=== PATIENT | female | born 1950 | race Caucasian/White ===

== ENCOUNTER 2017-12-22 19:24 | Outpatient (CLI) | payer SELFPAY | END 2017-12-22 19:25 | disposition EMS.NT | LOC: EMS 19:24 | PROVIDERS: ATTEND Surgery | DX: R53.1 Weakness (principal); W18.30XA Fall on same level, unspecified, initial encounter; Z91.81 History of falling; Y92.009 Unspecified place in unspecified non-institutional (private) residence as the place of occurrence of the external cause ==

== ENCOUNTER 2018-08-09 06:00 | Outpatient (CLI) | payer SELFPAY | END 2018-08-09 06:01 | disposition EMS.NT | LOC: EMS 06:00 | PROVIDERS: ATTEND Surgery | DX: Z03.89 Encounter for observation for other suspected diseases and conditions ruled out (principal) ==

== ENCOUNTER 2018-10-26 16:34 | Outpatient (CLI) | payer MEDICARE, OTHER ==
[2018-10-26 17:36] LABS: BASOPHILS # (AUTO) 0.1 10^3/uL (0.0-0.1); BASOPHILS % (AUTO) 0.4 %; EOSINOPHILS % (AUTO) 0.2 %; HGB - HEMOGLOBIN 14.1 g/dL (12.0-16.0); LYMPHOCYTES # (AUTO) 3.4 10^3/uL (1.5-3.5); LYMPHOCYTES % (AUTO) 19.7 %; MEAN CORPUSCULAR HEMOGLOBIN 31.3 pg (27.0-31.0); MEAN CORPUSCULAR HGB CONC 31.9 g/dL (32.0-36.0); MEAN CORPUSCULAR VOLUME 98.2 fL (81.0-99.0); MEAN PLATELET VOLUME 10.8 fL (7.9-10.8); MONOCYTES # (AUTO) 0.8 10^3/uL (0.0-1.0); MONOCYTES % (AUTO) 4.8 %; NEUTROPHILS # (AUTO) 12.9 10^3/uL (1.5-6.6); NEUTROPHILS % (AUTO) 73.6 %; PLT - PLATELET COUNT 308 10^3/uL (130-450); RED CELL DISTRIBUTION WIDTH 13.8 % (12.0-15.0); WHITE BLOOD COUNT 17.4 x10^3/uL (4.8-10.8)
[2018-10-26 17:56] LABS: ALBUMIN 3.7 g/dL (3.2-5.5); ALBUMIN/GLOBULIN RATIO 0.7 (1.0-2.2); BILIRUBIN,TOTAL 1.7 mg/dL (0.2-1.0); CALCIUM 9.9 mg/dL (8.5-10.3); TOTAL PROTEIN 8.7 g/dL (6.7-8.2)
[2018-10-26 20:44] LABS: FREE T4 (FREE THYROXINE) 1.07 ng/dL (0.58-1.64)
--- NOTE | 2018-10-27 08:37 | XRAY Report ---
Reason: WT LOSS ABNORMAL Procedure Date: 10/26/2018 Accession Number: [id number] / [id number] Procedure: XR - Chest 2 View X-Ray CPT Code: 50130 FULL RESULT: EXAM: CHEST RADIOGRAPHY EXAM DATE: 10/26/2018 05:03 PM. CLINICAL HISTORY: WT LOSS ABNORMAL. COMPARISON: None. TECHNIQUE: 2 views. FINDINGS: Lungs/Pleura: No focal opacities evident. No pleural effusion. No pneumothorax. Normal volumes. Mediastinum: Heart and mediastinal contours are unremarkable. Other: Increased density right cardiophrenic angle, likely prominent fat pad. Mild degenerative change in the spine. IMPRESSION: Grossly clear lungs. If abnormal weight loss persists, consider CT. RADIA
== END 2018-10-26 16:35 | disposition home or self-care (01) ==
LOC: DI 16:34
PROVIDERS: ATTEND Internal Medicine
DX: R63.4 Abnormal weight loss (principal)
CPT/HCPCS: 36415; 71046; 80053; 82977; 84439; 84443; 85025; 85651

== ENCOUNTER 2020-07-10 10:14 | Outpatient (CLI) | payer OTHER ==
[2020-07-10 14:57] LABS: BASOPHILS % (AUTO) 0.4 %; EOSINOPHILS # (AUTO) 0.1 10^3/uL (0.0-0.7); EOSINOPHILS % (AUTO) 1.2 %; HCT - HEMATOCRIT 40.6 % (37.0-47.0); LYMPHOCYTES # (AUTO) 2.1 10^3/uL (1.5-3.5); MEAN CORPUSCULAR HEMOGLOBIN 33.9 pg (27.0-31.0); MEAN CORPUSCULAR VOLUME 105.7 fL (81.0-99.0); MONOCYTES # (AUTO) 0.4 10^3/uL (0.0-1.0); MONOCYTES % (AUTO) 6.4 %; NEUTROPHILS # (AUTO) 4.1 10^3/uL (1.5-6.6); NEUTROPHILS % (AUTO) 60.6 %; PLT - PLATELET COUNT 177 10^3/uL (130-450); RED BLOOD COUNT 3.84 10^6/uL (4.20-5.40); RED CELL DISTRIBUTION WIDTH 13.3 % (12.0-15.0); WHITE BLOOD COUNT 6.7 x10^3/uL (4.8-10.8)
[2020-07-10 15:03] LABS: INR 1.2 (0.8-1.2); PT - PROTHROMBIN TIME 13.6 secs (9.9-12.6)
[2020-07-10 15:28] LABS: ALBUMIN 3.8 g/dL (3.2-5.5); BILIRUBIN,TOTAL 0.9 mg/dL (0.2-1.0); CALCIUM 9.3 mg/dL (8.5-10.3); CREATININE 0.6 mg/dL (0.4-1.0); POTASSIUM 4.1 mmol/L (3.5-5.0); TOTAL PROTEIN 7.6 g/dL (6.7-8.2)
[2020-07-10 15:40] LABS: THYROID STIMULATING HORMONE 2.39 uIU/mL (0.34-5.60)
[2020-07-10 15:46] LABS: ESTIMATED AVERAGE GLUCOSE 103 mg/dL (70-100); HEMOGLOBIN A1c% 5.2 % (4.27-6.07)
== END 2020-07-10 10:15 | disposition home or self-care (01) ==
LOC: LAB.S 10:14
PROVIDERS: ATTEND Internal Medicine
DX: F10.20 Alcohol dependence, uncomplicated (principal); R94.6 Abnormal results of thyroid function studies
CPT/HCPCS: 36415; 80053; 83036; 84443; 85025; 85610

== ENCOUNTER 2021-07-03 03:08 | Outpatient (CLI) | payer OTHER | END 2021-07-03 03:09 | disposition EMS.NT | LOC: EMS 03:08 | DX: Z03.89 Encounter for observation for other suspected diseases and conditions ruled out (principal) ==

== ENCOUNTER 2021-10-28 18:23 | Outpatient (CLI) | payer OTHER | END 2021-10-28 18:24 | disposition EMS.NT | LOC: EMS 18:23 | DX: R11.2 Nausea with vomiting, unspecified (principal); R53.1 Weakness; R63.8 Other symptoms and signs concerning food and fluid intake; F32.A Depression, unspecified ==

== ENCOUNTER 2021-10-31 12:49 | Outpatient (CLI) | payer OTHER | END 2021-10-31 12:50 | disposition left against medical advice (07) | LOC: EMS 12:49 | DX: R53.1 Weakness (principal); Z74.2 Need for assistance at home and no other household member able to render care ==

== ENCOUNTER 2021-11-07 17:46 | Inpatient (IN) | payer MEDICARE, OTHER ==
[2021-11-07] MEDS ORDERED: SODIUM CHLORIDE 0.9% 1,000 ML IV STA (17:57)
[2021-11-07 18:17] LABS: BASOPHILS % (AUTO) 0.2 %; EOSINOPHILS % (AUTO) 0.3 %; HCT - HEMATOCRIT 38.5 % (37.0-47.0); HGB - HEMOGLOBIN 12.9 g/dL (12.0-16.0); LYMPHOCYTES # (AUTO) 1.4 10^3/uL (1.5-3.5); MEAN CORPUSCULAR HEMOGLOBIN 33.6 pg (27.0-31.0); MEAN CORPUSCULAR HGB CONC 33.5 g/dL (32.0-36.0); MEAN CORPUSCULAR VOLUME 100.3 fL (81.0-99.0); MEAN PLATELET VOLUME 9.7 fL (7.9-10.8); MONOCYTES # (AUTO) 0.4 10^3/uL (0.0-1.0); MONOCYTES % (AUTO) 6.9 %; NEUTROPHILS # (AUTO) 4.1 10^3/uL (1.5-6.6); NEUTROPHILS % (AUTO) 68.3 %; PLT - PLATELET COUNT 197 10^3/uL (130-450); RED BLOOD COUNT 3.84 10^6/uL (4.20-5.40); RED CELL DISTRIBUTION WIDTH 15.2 % (12.0-15.0)
[2021-11-07] MEDS ORDERED: THIAMINE INJ 100 MG, MAGNESIUM SULFATE 2 GM, MULTIVITAMIN 10 ML, FOLIC ACID INJ 1 MG in... IV ONE ×5 (18:27)
[2021-11-07 18:34] LABS: ACETAMINOPHEN < 10 ug/mL (10-30); ALBUMIN 3.4 g/dL (3.2-5.5); ALBUMIN/GLOBULIN RATIO 0.8 (1.0-2.2); ALKALINE PHOSPHATASE 169 IU/L (42-121); ALT ALANINE AMINOTRANSFERASE 27 IU/L (10-60); AST ASPARTATE AMINOTRANSFERASE 33 IU/L (10-42); BILIRUBIN,TOTAL 2.2 mg/dL (0.2-1.0); BUN - BLOOD UREA NITROGEN 25 mg/dL (6-20); CALCIUM 9.3 mg/dL (8.5-10.3); CARBON DIOXIDE - CO2 23 mmol/L (21-32); CHLORIDE 110 mmol/L (101-111); CK- CREATINE KINASE 8 IU/L (22-269); CREATININE 0.6 mg/dL (0.4-1.0); ETOH - ETHANOL < 5.0 mg/dL; GFR - MDRD 99 (>89); GLUCOSE 99 mg/dL (70-100); LIPASE 32 U/L (22-51); POTASSIUM 3.2 mmol/L (3.5-5.0); SALICYLATE < 6.0 mg/dL; SODIUM 147 mmol/L (135-145); TOTAL PROTEIN 7.7 g/dL (6.7-8.2)
--- NOTE | 2021-11-07 18:50 | ED Physician Documentation ---
History of Present Illness - Stated complaint Stated Complaint: LIZZ/FAILURE TO THRIVE - Chief complaint Chief Complaint: General - Additonal information Additional information: 71-year-old female is brought to the emergency department via paramedics under an LIZZ by [facility] office. Reportedly the patient's close friend and housekeeper head has found that the patient has gotten progressively weak over the last week. She has been unable to get up off the couch without significant assistance. This friend has had to place multiple towels under the patient to capture urine and feces. EMS had been out earlier in the week for increased weakness when getting off the toilet. The friend reported the patient's likely had very little to eat or drink for about 48 hours thus she called EMS. The patient declined transport and therefore [facility] was notified who felt the patient was gravely disabled and therefore an LIZZ was submitted. The patient presents thin and cachectic. She will answer that she is in a hospi josh though she responds that she does not want to speak. She will nod yes or no to most questions. She does not appear to have a focal neurodeficit. She has towels in between her legs covered with urine and feces. The patient's friend and caregiver Danielle Kinney indicates to me that the patient has a longstanding history of alcohol abuse though she has not drank for nearly a week and she does have periods of sobriety. She reports that the patient has no family members that can speak for her. Her long-term partner about a year ago. However she does report that the patient is typically alert, oriented and very conversant. She had always been able to get out of bed and ambulate without any assistance Up until a week ago. She also reports that patient takes no routinely prescribed medications at baseline Review of Systems Unable to obtain: Other (History obtained from caregiver. Patient declines to answer most questions) PD PAST MEDICAL HISTORY - Past Medical History Past Medical History: Yes Other Past Medical History: etoh abuse - Allergies Allergies/Adverse Reactions: Allergies Allergy/AdvReac Type Severity Reaction Status Date / Time No Known Drug Allergies Allergy Verified 11/07/21 18:03 - Social History Does the pt smoke?: No Smoking Status: Never smoker PD ED PE EXPANDED - General General: Alert, Other (Thin elderly frail and cachectic appearance poor hygiene) - Cardiac Cardiac: Regular Rate, Radial strong equal, Pedal strong equal, Cap refill < 2 sec - Respiratory Respiratory: Clear to ausultation arian. No: Distress, Labored - Abdomen Abdomen: Normal Bowel sounds. No: Tender to palpation - Derm Derm: Normal color, Warm and dry. No: Rash - Neuro Neuro: CNII-XII intact (No obvious focal deficits. Grossly intact to though patient is unwilling to participate in the cerebellar exam) - GCS Eye Opening: To Voice Motor: Obeys Commands Verbal: Oriented Total: 14 Results - Vitals Vitals: Vital Signs - 24 hr 11/07/21 11/07/21 11/07/21 17:50 20:05 22:00 Temperature 36.1 C L Heart Rate 81 50 L 52 L Respiratory 16 20 17 Rate Blood Pressure 125/89 H 128/100 H O2 Saturation 97 100 100 Oxygen O2 Source Room air - Labs Labs: Laboratory Tests 11/07/21 11/07/21 11/07/21 18:10 18:10 18:10 WBC 6.0 RBC 3.84 L Hgb 12.9 Hct 38.5 MCV 100.3 H MCH 33.6 H MCHC 33.5 RDW 15.2 H Plt Count 197 MPV 9.7 Neut # (Auto) 4.1 Lymph # (Auto) 1.4 L [place] # (Auto) 0.4 Eos # (Auto) 0.0 Baso # (Auto) 0.0 Absolute Nucleated RBC 0.00 Nucleated RBC % 0.0 Sodium 147 H Potassium 3.2 L Chloride 110 Carbon Dioxide 23 Anion Gap 14.0 H BUN 25 H Creatinine 0.6 Estimated GFR (MDRD) 99 Glucose 99 Calcium 9.3 Total Bilirubin 2.2 H AST 33 ALT 27 Alkaline Phosphatase 169 H Ammonia Total Creatine Kinase 8 L Total Protein 7.7 Albumin 3.4 Globulin 4.3 H Albumin/Globulin Ratio 0.8 L Lipase 32 TSH 1.36 Urine Color Urine Clarity Urine pH Ur Specific [place] Urine Protein Urine Glucose (UA) Urine Ketones Urine Occult Blood Urine Nitrite Urine Bilirubin Urine Urobilinogen Ur Leukocyte Esterase Urine RBC Urine WBC Ur Epithelial Cells Ur Squamous Epith Cells Urine Bacteria Urine Mucus Ur Microscopic Review Urine Culture Comments Nasal Adenovirus (PCR) Nasal B. parapertussis DNA (PCR) Nasal Coronavir 229E PCR Nasal Coronavir HKU1 PCR Nasal Coronavir NL63 PCR Nasal Coronavir OC43 PCR Nasal Enterovir/Rhinovir PCR Nasal Influenza B PCR Nasal Influenza A PCR Nasal Parainfluen 1 PCR Nasal Parainfluen 2 PCR Nasal Parainfluen 3 PCR Nasal Parainfluen 4 PCR Nasal RSV (PCR) Nasal B.pertussis DNA PCR Nasal C.pneumoniae (PCR) [place] Metapneumo PCR Nasal M.pneumoniae (PCR) Nasal SARS-CoV-2 (PCR) Salicylates < 6.0 Urine Opiates Screen Ur Oxycodone Screen Urine Methadone Screen Ur Propoxyphene Screen Acetaminophen < 10 L Ur Barbiturates Screen Ur Tricyclics Screen Ur Phencyclidine Scrn Ur Amphetamine Screen U Methamphetamines Scrn U Benzodiazepines Scrn Urine Cocaine Screen U Cannabinoids Screen Ethyl Alcohol < 5.0 11/07/21 11/07/21 11/07/21 19:48 20:20 21:22 WBC RBC Hgb Hct MCV MCH MCHC RDW Plt Count MPV Neut # (Auto) Lymph # (Auto) [place] # (Auto) Eos # (Auto) Baso # (Auto) Absolute Nucleated RBC Nucleated RBC % Sodium Potassium Chloride Carbon Dioxide Anion Gap BUN Creatinine Estimated GFR (MDRD) Glucose Calcium Total Bilirubin AST ALT Alkaline Phosphatase Ammonia 10.4 Total Creatine Kinase Total Protein Albumin Globulin Albumin/Globulin Ratio Lipase TSH Urine Color DARK YELLOW Urine Clarity CLEAR Urine pH 6.0 Ur Specific [place] 1.020 Urine Protein TRACE Urine Glucose (UA) NEGATIVE Urine Ketones 15 H Urine Occult Blood NEGATIVE Urine Nitrite POSITIVE H Urine Bilirubin NEGATIVE Urine Urobilinogen 4 H Ur Leukocyte Esterase NEGATIVE Urine RBC 0-5 Urine WBC 4-5 Ur Epithelial Cells RARE Transitional Ur Squamous Epith Cells FEW Squamous Urine Bacteria Few Urine Mucus Marked Strands Ur Microscopic Review INDICATED Urine Culture Comments INDICATED Nasal Adenovirus (PCR) NOT DETECTED Nasal B. parapertussis DNA (PCR) NOT DETECTED Nasal Coronavir 229E PCR NOT DETECTED Nasal Coronavir HKU1 PCR NOT DETECTED Nasal Coronavir NL63 PCR NOT DETECTED Nasal Coronavir OC43 PCR NOT DETECTED Nasal Enterovir/Rhinovir PCR NOT DETECTED Nasal Influenza B PCR NOT DETECTED Nasal Influenza A PCR NOT DETECTED Nasal Parainfluen 1 PCR NOT DETECTED Nasal Parainfluen 2 PCR NOT DETECTED Nasal Parainfluen 3 PCR NOT DETECTED Nasal Parainfluen 4 PCR NOT DETECTED Nasal RSV (PCR) NOT DETECTED Nasal B.pertussis DNA PCR NOT DETECTED Nasal C.pneumoniae (PCR) NOT DETECTED [place] Metapneumo PCR NOT DETECTED Nasal M.pneumoniae (PCR) NOT DETECTED Nasal SARS-CoV-2 (PCR) NOT DETECTED Salicylates Urine Opiates Screen NEGATIVE Ur Oxycodone Screen NEGATIVE Urine Methadone Screen NEGATIVE Ur Propoxyphene Screen NEGATIVE Acetaminophen Ur Barbiturates Screen NEGATIVE Ur Tricyclics Screen NEGATIVE Ur Phencyclidine Scrn NEGATIVE Ur Amphetamine Screen NEGATIVE U Methamphetamines Scrn NEGATIVE U Benzodiazepines Scrn NEGATIVE Urine Cocaine Screen NEGATIVE U Cannabinoids Screen NEGATIVE Ethyl Alcohol - Rads (name of study) CT head Radiology: Final report received (Age-related volume loss and mild small vessel ischemic change. Sinusitis. No evidence of acute stroke hemorrhage or mass) CXR Radiology: Final report received (No acute cardiopulmonary process) PD MEDICAL DECISION MAKING - ED course Complexity details: reviewed results, re-evaluated patient, considered differential, d/w patient ED course: 71-year-old female presents emergency department via EMS under an LIZZ for evaluation of gravely disabled. Reportedly over the last week she has been unable to get up off of the couch. Her friend has been replacing towels under her to aid with defecation and urination. She is had very little to eat or drink over the last week. She also has a history of alcohol abuse though has been unable to drink because she cannot ambulate and reach her alcohol She presents the emergency department thin cachectic and ill-appearing. She will nod yes or no to most questions but prefers not to speak. She can follow commands simply by giving a thumbs up or showing 2 fingers but she is resistant to most administrations in the ER including cleansing her of the urine and feces. There is no significant vital sign derangement on presentation. Her CBC shows no leukocytosis. Her electrolytes indicate moderate dehydration with an elevated sodium, BUN as well as mild hypokalemia. Urinalysis obtained with richardson insertion shows a nitrite positive urine with few bacteria. This is consistent with acute cystitis. The patient presents gravely disabled very weak with a metabolic encephalopathy that may be related to a urinary tract infection conversely or to long-term alcohol use. She was administered thiamine and folate in the form of a banana bag as well as a liter of IV fluids for dehydration. A CT of her head showed no acute intracranial findings. 2106: Order was placed at 2106 to telehealth in order to facilitate admission to the hospital for altered mental status, metabolic encephalopathy, dehydration, acute cystitis. 2205: Telehealth has not yet returned the phone call. Patient is signed out to my nighttime colleague Dr. Arnold to follow-up with telehealth for admission Departure - Departure Disposition: 66 [facility] DC/Xfer Clinical Impression: Metabolic encephalopathy, Dehydration, Generalized weakness, History of ETOH abuse, Failure to thrive in adult Acute cystitis Qualifiers: Hematuria presence: without hematuria Qualified Code(s): N30.00 - Acute cystitis without hematuria Condition: Stable
--- NOTE | 2021-11-07 18:50 | CT Report ---
PROCEDURE: HEAD WO INDICATIONS: FTT; sat on chouch for 2 weeks TECHNIQUE: Noncontrast 4.5 mm thick angled axial sections acquired from the foramen magnum to the vertex. For r adiation dose reduction, the following was used: automated exposure control, adjustment of mA and/or kV according to patient size. COMPARISON: None. FINDINGS: Image quality: Excellent. CSF spaces: Basal cisterns are patent. No extra-axial fluid collections. Ventricles are normal in size and shape. Brain: No midline shift. No intracranial masses or hemorrhage. [place]-white matter interface is norm al. Internal carotid artery calcifications and cavernous region. Age-related volume loss and mild sm all vessel ischemic change. Skull and face: Calvarium and visualized facial bones are intact, without suspicious lesions. Sinuses: Complete opacification of the left maxillary sinus. Minimal sphenoid sinus soft tissue. IMPRESSION: 1. Age-related volume loss and mild small vessel ischemic change. 2. Sinusitis. 3. No evidence acute stroke, hemorrhage, or mass. Reviewed by: Bk Reaves MD on 11/07/2021 6:49 PM PDT Approved by: Bk Reaves MD on 11/07/2021 6:49 PM PDT Station ID: [id number]
--- NOTE | 2021-11-07 20:38 | XRAY Report ---
PROCEDURE: Chest 1 View X-Ray INDICATIONS: FTT TECHNIQUE: One view of the chest was acquired. COMPARISON: 10/26/2018 FINDINGS: Surgical changes and devices: None. Lungs and pleura: There is mild interstitial prominence within the upper lung zones. No acute consol idation. No pleural effusions or pneumothorax. Mediastinum: Mediastinal contours appear normal. Heart size is normal. Bones and chest wall: No suspicious bony lesions. Overlying soft tissues appear unremarkable. IMPRESSION: 1. Mild interstitial prominence within the upper lung zones suggestive of chronic interstitial change s possibly from scarring or emphysematous changes. 2. No definite acute cardiopulmonary disease. Reviewed by: Fly Fish MD on 11/07/2021 8:37 PM PDT Approved by: Fly Fish MD on 11/07/2021 8:37 PM PDT Station ID: [id number]
[2021-11-07 20:43] LABS: B. PARAPERTUSSIS- RESP PCR PAN NOT DETECTED; B. PERTUSSIS- RESP PCR PANEL NOT DETECTED; C. PNEUMONIAE- RESP PCR PANEL NOT DETECTED; CORONAVIRUS 229E-RESP PCR NOT DETECTED; CORONAVIRUS HKU1-RESP PCR NOT DETECTED; CORONAVIRUS NL63-RESP PCR NOT DETECTED; CORONAVIRUS OC43-RESP PCR NOT DETECTED; HUMAN METAPNEUMOVIRUS NOT DETECTED; INFLUENZA A- RESP PCR PANEL NOT DETECTED; INFLUENZA B - RESP PCR PANEL NOT DETECTED; M. PNEUMONIAE- RESP PCR PANEL NOT DETECTED; PARAINFLUENZA VIRUS 1 NOT DETECTED; PARAINFLUENZA VIRUS 2 NOT DETECTED; PARAINFLUENZA VIRUS 3 NOT DETECTED; PARAINFLUENZA VIRUS 4 NOT DETECTED; RHINOVIRUS/ENTEROVIRUS NOT DETECTED; RSV- RESP PCR PANEL NOT DETECTED; SARS-CoV-2 -RESP PCR PANEL NOT DETECTED
[2021-11-07 20:45] LABS: MUDS CUTOFF CONCENTRATIONS CUTOFF CONC BELOW:
[2021-11-07 20:48] LABS: GLUCOSE, URINE (UA) NEGATIVE (NEGATIVE); KETONES,URINE (UA) 15 mg/dL (NEGATIVE); LEUKOCYTE ESTERASE, URINE NEGATIVE (NEGATIVE); NITRITE,URINE POSITIVE (NEGATIVE); OCCULT BLOOD,URINE NEGATIVE (NEGATIVE); PROTEIN,URINE TRACE mg/dL (NEGATIVE); UROBILINOGEN,URINE 4 E.U./dL (NORMAL)
[2021-11-07 20:53] LABS: BILIRUBIN,URINE NEGATIVE (NEGATIVE); CLARITY,URINE CLEAR (CLEAR); ICTOTEST,URINE NEGATIVE
[2021-11-07 20:56] LABS: AMPHETAMINE SCREEN,URINE NEGATIVE (NEGATIVE); BARBITURATE SCREEN,UR NEGATIVE (NEGATIVE); BENZODIAZEPINES SCREEN, URINE NEGATIVE (NEGATIVE); COCAINE SCREEN URINE NEGATIVE (NEGATIVE); METHADONE SCREEN, URINE NEGATIVE (NEGATIVE); METHAMPHETAMINES SCREEN, URINE NEGATIVE (NEGATIVE); OPIATE SCREEN, URINE NEGATIVE (NEGATIVE); OXYCODONE SCREEN, URINE NEGATIVE (NEGATIVE); PROPOXYPHENE SCREEN, URINE NEGATIVE (NEGATIVE); THC CANNABINOID SCREEN, URINE NEGATIVE (NEGATIVE); TRICYCLIC ANTIDEPRESSANT,URINE NEGATIVE (NEGATIVE)
[2021-11-07 21:01] LABS: BACTERIA,URINE Few /HPF (None Seen); EPITHELIAL CELLS,UR RARE Transitional /HPF (<= Few); MUCUS,URINE Marked Strands; RBC,URINE 0-5 /HPF (0-5); SQUAMOUS EPITHELIAL CELL,UR FEW Squamous (<= Few)
[2021-11-07] MEDS ORDERED: cefTRIAXone 1 GM in SODIUM CHLORIDE 0.9% MINIBAG 100 ML IV STA (21:53)
[2021-11-07] MEDS ORDERED: cefTRIAXone 1 GM VIAL ONE (22:50)
--- NOTE | 2021-11-07 22:55 | HISTORY & PHYSICAL EXAMINATION ---
Chief Complaint - Chief Complaint Chief Complaint: generalized weakness (LIZZ) History of Present Illness - Admitted From Admitted From:: home - History Obtained From History obtained from: patient Exam Limitations: confusion - History of Present Illness HPI Comment/Other: Ms Mills is a 71 yo F with hx alcoholism, patient reports she quit drinking one month ago. Patient has been on her couch x 1 week, unable to get up, minimal PO intake. Her bank compliance officer has been using towels under the patient for urine/feces. Patient declined EMS transport and was placed on LIZZ by [facility]. At time of my evaluation patient is oriented to self and place only ([facility], hospital, no further details). She states she was taken against her will because she hasn't been eating. She states she has no appetite, not hungry, tried to eat a banana and felt nauseous. Patient denies any pain or discomfort at this time. Denies abd pain, vomiting, diarrhea, fevers, chills, cough, sputum production, cp, sob. She is agreeable to hospital admission. Limited interaction, mostly gives one word answers. Appears fatigued. Per ER physician discussion with caregiver: "The patient's friend and caregiver Danielle Kinney indicates to me that the patient has a longstanding history of alcohol abuse though she has not drank for nearly a week and she does have periods of sobriety. She reports that the patient has no family members that can speak for her. Her long-term partner about a year ago. However she does report that the patient is typically alert, oriented and very conversant. She had always been able to get out of bed and ambulate without any assistance Up until a week ago. She also reports that patient takes no routinely prescribed medications at baseline. " History - Past Medical History Cardiovascular: denies: None Respiratory: denies: None Neuro: denies: None Endocrine/Autoimmune: denies: None GI: denies: None [employer]: denies: None : denies: None HEENT: denies: None Psych: denies: None Musculoskeletal: denies: None Derm: denies: None Other Past Medical History: etoh abuse - Past Surgical History Other past surgical history: none - Family & Social History Family History Comment/Other: pt reports she does not have any family Living arrangement: At home Living Situation: Alone - Substance History Use: Uses substance without health or social issues: Tobacco (3 cig/day), Alcohol (quit last month per patient ) - POLST Patient has POLST: No Meds/Allgy - Allergies Allergies/Adverse Reactions: Allergies Allergy/AdvReac Type Severity Reaction Status Date / Time No Known Drug Allergies Allergy Verified 11/07/21 18:03 Review of Systems - Constitutional Constitutional: reports: Fatigue, Weakness, Poor appetite, Weight loss - Cardiovascular Cariovascular: denies: Chest pain - Respiratory Respiratory: denies: Cough, Sputum production - Gastrointestinal Gastrointestinal: reports: Nausea, Poor appetite. denies: Abdominal pain, Diarrhea, Vomiting - Genitourinary Genitourinary: reports: Incontinence - Neurological Neurological: reports: General weakness - All Other Systems All Other Systems: reports: Reviewed and negative Exam - Vital Signs Reviewed Vital Signs: Yes Vital Signs: Vital Signs x48h Temp Pulse Resp BP Pulse Ox 11/07/21 22:00 52 L 17 128/100 H 100 11/07/21 20:05 50 L 20 100 11/07/21 17:50 36.1 C L 81 16 125/89 H 97 - Physical Exam General Appearance: positive: No acute distress, Other (frail, thin) Eyes Bilateral: positive: Normal inspection Respiratory: positive: No respiratory distress Skin: positive: No rash, Pallor Extremities: positive: Other (thin) Neurologic/Psychiatric: positive: Disoriented to place (knows state, not city/town), Disoriented to time, Depressed mood/affect (withdrawn, minimal interaction, flat affect) Conclusion/Plan - Lab Results Lab results reviewed: Yes Fish Bones: 11/07/21 18:10 11/07/21 18:10 - Other Other Results/Comments: Assessment/Plan: Acute metabolic encephalopathy -Likely multifactorial in setting of UTI, recent alcohol cessation -Possible underlying psychiatric disorder vs dementia, further evaluation -Case management/SW consult -PT/OT consults for home safety assessment -Thiamine/folate/MVI UTI -IV abx, f/u cultures Pre-renal azotemia -In setting of minimal PO intake -IVF hydration -Trend labs Hypokalemia -Replete -F/u magnesium DVT ppx: Heparin sc Full code *need further evaluation regarding medical POA / none assigned per patient Admit for management of UTI, encephalopathy, discharge planning.
[2021-11-07] MEDS ORDERED: ACETAMINOPHEN 325 MG TABLET PO PRN (23:30)
[2021-11-07] MEDS ORDERED: ONDANSETRON 4 MG/2 ML VIAL IVP PRN (23:30)
[2021-11-07] MEDS ORDERED: SODIUM CHLORIDE FLUSH 0.9% 10 ML SYRINGE IVP PRN (23:30)
[2021-11-08] MEDS: SODIUM CHLORIDE 0.9% 1,000 ML IV SCH ×2 (00:54→11:08)
[2021-11-08] MEDS: SODIUM CHLORIDE FLUSH 0.9% 10 ML SYRINGE IVP SCH ×3 (00:54→20:47)
[2021-11-08] MEDS: POTASSIUM CHLOR 10 MEQ/100 ML 10 MEQ/100 ML BAG IV SCH ×4 (01:04→04:38)
[2021-11-08] MEDS ORDERED: THIAMINE 100 MG TABLET PO SCH (09:00)
[2021-11-08] MEDS ORDERED: MULTIVITAMIN TABLET PO SCH (09:00)
[2021-11-08] MEDS ORDERED: FOLIC ACID 1 MG TABLET PO SCH (09:00)
[2021-11-08] MEDS: HEPARIN 5,000 UNIT/ML VIAL SUBQ SCH ×2 (09:46→20:44)
--- NOTE | 2021-11-08 10:10 | PROVIDER PROGRESS NOTE ---
Subjective - Prog Note Date Prog Note Date: 11/08/21 Prog Note Time: 10:07 - Subjective Subjective: Greater than 1 hour was spent in reviewing the chart, attempted to speak to the patient and making an assessment. She will open her eyes to look at me. But she is not speaking. She refused blood draws this morning. She refused ultrasound this morning. When nurse touched her shoulder gently to see if she was awake the patient opened her eyes and looked at the nurse and said "do not touch me". Her flexo press operator, Danielle, did bring in her advance care directive. There is language stating that if she were to get to the point where she were completely dependent on other people to feed her, dress her, and she had no ability to do her own activities of daily living, that this was worse than and to let her a natural . I did attempt to speak to her about her advanced directive. I explained to her that she was at the point where she was completely dependent on other people. I did not know if this was a permanent situation or a temporary situation. I asked her if she was ready for us to just leave her alone and let her go. She did open her eyes at my request. And she pursed her lips, closed her eyes, and turned her head the other way. She refused to speak to me. When a note 2018 from her previous primary care provider in [place], Dr. 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 She stopped on the floor close to the bathroom, lay down and stayed there. Was unable to change position on her own. However she was able to hold her iPad and lift her cup to drink from a straw. She denied pain, and was urinating in bowls with her partner's help. She was a very heavy drinker. She used to drink wine but was drinking rum to a pint a day and was smoking 1 pack/day for over 40 years. She appeared with generalized weakness, and moderate severe muscle cachexia. In that note the patient stated she never wanted to go to the hospital, never wanted to be in the hospital and did not ever want treatment. She did not want to travel. Hospice services were discussed and they wanted that done. Her partner at that time, Binu, confirmed that Laurel has consistently chose not to have medical treatment or evaluation. That she would not do it and that she was of sound mind and that she was still of sound mind as of that day. It is also noted that during that visit, she was willing to talk to the doctor, but refused to talk to any a mbulance personnel that brought her to the hospital. In her patient intake form when she establish yourself with her primary care provider on October 26, 2018 she says that her friend Binu Rhodes at [phone] was her call or contact centre operator. In her past medical history she stated that she had had 3 hip surgeries. No major illnesses, childhood illnesses, allergies or other problems. She had a negative family history for all diseases. That she took no prescription drugs. She has had 2 pregnancies and 2 abortions. She was seen for an abrupt decline in health for 2 months. 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 She lost her appetite. All of her teeth were extracted due to poor dentition and she was using dentures. She noted increased generalized weakness and was needing a wheelchair to get out of her house. That primary care provider was concerned about neoplasm, weight loss, and had not been able to review her previous medical records and did not know about the September 29, 2018 encounter. They did recognize that she had generalized disability due to long-term alcohol abuse. She had stopped drinking by November 11, 2018, glucose was 212 and consistent with diabetes. Alcoholic hepatitis seen on liver function studies. Home physical therapy was ordered. A nd she was seen by [facility] for the rest of 2018 and into 2019. She was discharged from [facility] May 20, 2019. She was able to be independent performing home exercise program could not sit, stand, have balance. Was exhibiting improved activity tolerance and could walk and stand for at least 2 minutes. She was using a front wheel walker and had standby assist for 14 steps inside her house. She had resumed cooking all of her dinners. Was bathing her self at a bathroom sink and toilet independently. Her next goal was to shower upstairs. Her primary caregiver left the office and she establish himself with a new primary caregiver in March 2020. She was with recurrent weakness and had difficulty standing. Anorexia was back, and she was developing abdominal swelling. She had gone back to drinking. She declined doing an ultrasound to stage the cirrhosis of her liver. She did have a left hand tremor during that visit. Diabetes was discussed. But she refused to do any medications. By then she was smoking 2 packs/day. They asked her to come back in 3 months for blood work. In February 2021 [facility] requested a form to be filled out by the primary care provider about cognitive impairment. However at that time she had not been seen for close to a year and the office declined to fill it. Her primary care provider than left in March 2021 and that was the last time she had an encounter with that office. It is unclear when her partner . The flexo press operator states that he in the last year. No one has been taking care of the patient except the flexo press operator. The flexo press operator says that her job responsibility is mainly the house, and she does help by buying groceries. She also tries to help the patient by changing her and cleaning her when she has been incontinent on the sofa. For the last week the patient has been subsisting on Pedialyte, Jell-O, and applesauce. With she is refusing her tray. We did bring her the Pedialyte and Jell-O and she is refusing that as well. She is refusing blood draws and she is refusing an ultrasound. Current Medications - Current Medications Current Medications: Active Medications Acetaminophen (Acetaminophen 325 Mg Tablet) 650 mg PO Q4HR PRN PRN Reason: Pain 1 to 4, or Fever Folic Acid (Folic Acid 1 Mg Tablet) 1 mg PO DAILY [facility] Last Admin: 11/08/21 09:46 Dose: Not Given Heparin Sodium (Porcine) (Heparin 5,000 Unit/Ml Vial) 5,000 unit SUBQ BID [facility] Last Admin: 11/08/21 09:46 Dose: Not Given Sodium Chloride (Normal Saline 0.9%) 1,000 mls @ 100 mls/hr IV .Q10H [facility] Last Admin: 11/08/21 00:54 Dose: 100 mls/hr Ceftriaxone Sodium 1 gm/ (Sodium Chloride) 100 mls @ 200 mls/hr IV Q24H [facility] Multivitamins (Multivitamin Tablet) 1 tab PO DAILY [facility] Last Admin: 11/08/21 09:46 Dose: Not Given Ondansetron HCl (Ondansetron 4 Mg/2 Ml Vial) 4 mg IVP Q6HR PRN PRN Reason: Nausea / Vomiting Sodium Chloride (Sodium Chloride Flush 0.9% 10 Ml Syringe) 10 ml IVP PRN PRN PRN Reason: NEEDED PER PROVIDER ORDERS Sodium Chloride (Sodium Chloride Flush 0.9% 10 Ml Syringe) 10 ml IVP 0100,0900,1700 [facility] Last Admin: 11/08/21 08:52 Dose: Not Given Thiamine HCl (Thiamine 100 Mg Tablet) 100 mg PO DAILY [facility] Last Admin: 11/08/21 09:46 Dose: Not Given Objective - Vital Signs/Intake & Output Reviewed Vital Signs: Yes Vital Signs: Vital Signs x48h Temp Pulse Resp 11/08/21 07:58 36.1 C L 52 L 18 11/08/21 05:30 53 L Intake & Output: Intake & Output 11/05/21 11/06/21 11/07/21 11/08/21 23:59 23:59 23:59 23:59 Intake Total 1100 800 Output Total 700 Balance 1100 100 - Objective General Appearance: positive: No acute distress, Alert, Other (White female who looks much older than stated age, slightly gaunt, lying comfortably at 45 degrees, hands crossed across her upper abdomen. Laying comfortably. No respiratory distress. But refusing to speak to me. She will open her eyes) Eyes Bilateral: positive: PERRL (She opens her eyes, looks directly at me, and I can see pupils dilate and constrict to accommodate. She then looks around the room. Closes her eyes.), EOMI ENT: positive: No signs of dehydration Neck: positive: No JVD Respiratory: positive: No respiratory distress. negative: Wheezes, Rales, Rhonchi Cardiovascular: positive: Regular rate & rhythm Abdomen: positive: Non-tender, Nml bowel sounds, No distention Skin: positive: Warm, Dry Extremities: positive: Full ROM, No pedal edema Neurologic/Psychiatric: positive: Oriented x3, CN's nml (2-12), Motor nml. negative: Mood/affect nml - Lab Results Fish Bones: 11/07/21 18:10 11/07/21 18:10 Other Labs: Lab Results x24hrs 11/07/21 11/07/21 11/07/21 Range/Units 21:22 20:20 19:48 WBC (4.8-10.8) x10^3/uL RBC (4.20-5.40) 10^6/uL Hgb (12.0-16.0) g/dL Hct (37.0-47.0) % MCV (81.0-99.0) fL MCH (27.0-31.0) pg MCHC (32.0-36.0) g/dL RDW (12.0-15.0) % Plt Count (130-450) 10^3/uL MPV (7.9-10.8) fL Neut # (Auto) (1.5-6.6) 10^3/uL Lymph # (Auto) (1.5-3.5) 10^3/uL [place] # (Auto) (0.0-1.0) 10^3/uL Eos # (Auto) (0.0-0.7) 10^3/uL Baso # (Auto) (0.0-0.1) 10^3/uL Absolute Nucleated RBC x10^3/uL Nucleated RBC % /100WBC Sodium (135-145) mmol/L Potassium (3.5-5.0) mmol/L Chloride (101-111) mmol/L Carbon Dioxide (21-32) mmol/L Anion Gap (6-13) BUN (6-20) mg/dL Creatinine (0.4-1.0) mg/dL Estimated GFR (MDRD) (>89) Glucose (70-100) mg/dL Calcium (8.5-10.3) mg/dL Total Bilirubin (0.2-1.0) mg/dL AST (10-42) IU/L ALT (10-60) IU/L Alkaline Phosphatase (42-121) IU/L Ammonia 10.4 (7-35) umol/L Total Creatine Kinase (22-269) IU/L Total Protein (6.7-8.2) g/dL Albumin (3.2-5.5) g/dL Globulin (2.1-4.2) g/dL Albumin/Globulin Ratio (1.0-2.2) Lipase (22-51) U/L TSH (0.34-5.60) uIU/mL Urine Color DARK YELLOW Urine Clarity CLEAR (CLEAR) Urine pH 6.0 (5.0-7.5) PH Ur Specific [place] 1.020 (1.002-1.030) Urine Protein TRACE (NEGATIVE) mg/dL Urine Glucose (UA) NEGATIVE (NEGATIVE) mg/dL Urine Ketones 15 H (NEGATIVE) mg/dL Urine Occult Blood NEGATIVE (NEGATIVE) Urine Nitrite POSITIVE H (NEGATIVE) Urine Bilirubin NEGATIVE (NEGATIVE) Urine Urobilinogen 4 H (NORMAL) E.U./dL Ur Leukocyte Esterase NEGATIVE (NEGATIVE) Urine RBC 0-5 (0-5) /HPF Urine WBC 4-5 (0-5) /HPF Ur Epithelial Cells RARE Transitional (<= Few) /HPF Ur Squamous Epith Cells FEW Squamous (<= Few) Urine Bacteria Few (None Seen) /HPF Urine Mucus Marked Strands Ur Microscopic Review INDICATED Urine Culture Comments INDICATED Nasal Adenovirus (PCR) NOT DETECTED Nasal B. parapertussis DNA (PCR) NOT DETECTED Nasal Coronavir 229E PCR NOT DETECTED Nasal Coronavir HKU1 PCR NOT DETECTED Nasal Coronavir NL63 PCR NOT DETECTED Nasal Coronavir OC43 PCR NOT DETECTED Nasal Enterovir/Rhinovir PCR NOT DETECTED Nasal Influenza B PCR NOT DETECTED Nasal Influenza A PCR NOT DETECTED Nasal Parainfluen 1 PCR NOT DETECTED Nasal Parainfluen 2 PCR NOT DETECTED Nasal Parainfluen 3 PCR NOT DETECTED Nasal Parainfluen 4 PCR NOT DETECTED Nasal RSV (PCR) NOT DETECTED Nasal B.pertussis DNA PCR NOT DETECTED Nasal C.pneumoniae (PCR) NOT DETECTED [facility] Metapneumo PCR NOT DETECTED Nasal M.pneumoniae (PCR) NOT DETECTED Nasal SARS-CoV-2 (PCR) NOT DETECTED Salicylates mg/dL Urine Opiates Screen NEGATIVE (NEGATIVE) Ur Oxycodone Screen NEGATIVE (NEGATIVE) Urine Methadone Screen NEGATIVE (NEGATIVE) Ur Propoxyphene Screen NEGATIVE (NEGATIVE) Acetaminophen (10-30) ug/mL Ur Barbiturates Screen NEGATIVE (NEGATIVE) Ur Tricyclics Screen NEGATIVE (NEGATIVE) Ur Phencyclidine Scrn NEGATIVE (NEGATIVE) Ur Amphetamine Screen NEGATIVE (NEGATIVE) U Methamphetamines Scrn NEGATIVE (NEGATIVE) U Benzodiazepines Scrn NEGATIVE (NEGATIVE) Urine Cocaine Screen NEGATIVE (NEGATIVE) U Cannabinoids Screen NEGATIVE (NEGATIVE) Ethyl Alcohol mg/dL 11/07/21 11/07/21 11/07/21 Range/Units 18:10 18:10 18:10 WBC 6.0 (4.8-10.8) x10^3/uL RBC 3.84 L (4.20-5.40) 10^6/uL Hgb 12.9 (12.0-16.0) g/dL Hct 38.5 (37.0-47.0) % MCV 100.3 H (81.0-99.0) fL MCH 33.6 H (27.0-31.0) pg MCHC 33.5 (32.0-36.0) g/dL RDW 15.2 H (12.0-15.0) % Plt Count 197 (130-450) 10^3/uL MPV 9.7 (7.9-10.8) fL Neut # (Auto) 4.1 (1.5-6.6) 10^3/uL Lymph # (Auto) 1.4 L (1.5-3.5) 10^3/uL [place] # (Auto) 0.4 (0.0-1.0) 10^3/uL Eos # (Auto) 0.0 (0.0-0.7) 10^3/uL Baso # (Auto) 0.0 (0.0-0.1) 10^3/uL Absolute Nucleated RBC 0.00 x10^3/uL Nucleated RBC % 0.0 /100WBC Sodium 147 H (135-145) mmol/L Potassium 3.2 L (3.5-5.0) mmol/L Chloride 110 (101-111) mmol/L Carbon Dioxide 23 (21-32) mmol/L Anion Gap 14.0 H (6-13) BUN 25 H (6-20) mg/dL Creatinine 0.6 (0.4-1.0) mg/dL Estimated GFR (MDRD) 99 (>89) Glucose 99 (70-100) mg/dL Calcium 9.3 (8.5-10.3) mg/dL Total Bilirubin 2.2 H (0.2-1.0) mg/dL AST 33 (10-42) IU/L ALT 27 (10-60) IU/L Alkaline Phosphatase 169 H (42-121) IU/L Ammonia (7-35) umol/L Total Creatine Kinase 8 L (22-269) IU/L Total Protein 7.7 (6.7-8.2) g/dL Albumin 3.4 (3.2-5.5) g/dL Globulin 4.3 H (2.1-4.2) g/dL Albumin/Globulin Ratio 0.8 L (1.0-2.2) Lipase 32 (22-51) U/L TSH 1.36 (0.34-5.60) uIU/mL Urine Color Urine Clarity (CLEAR) Urine pH (5.0-7.5) PH Ur Specific [place] (1.002-1.030) Urine Protein (NEGATIVE) mg/dL Urine Glucose (UA) (NEGATIVE) mg/dL Urine Ketones (NEGATIVE) mg/dL Urine Occult Blood (NEGATIVE) Urine Nitrite (NEGATIVE) Urine Bilirubin (NEGATIVE) Urine Urobilinogen (NORMAL) E.U./dL Ur Leukocyte Esterase (NEGATIVE) Urine RBC (0-5) /HPF Urine WBC (0-5) /HPF Ur Epithelial Cells (<= Few) /HPF Ur Squamous Epith Cells (<= Few) Urine Bacteria (None Seen) /HPF Urine Mucus Ur Microscopic Review Urine Culture Comments Nasal Adenovirus (PCR) Nasal B. parapertussis DNA (PCR) Nasal Coronavir 229E PCR Nasal Coronavir HKU1 PCR Nasal Coronavir NL63 PCR Nasal Coronavir OC43 PCR Nasal Enterovir/Rhinovir PCR Nasal Influenza B PCR Nasal Influenza A PCR Nasal Parainfluen 1 PCR Nasal Parainfluen 2 PCR Nasal Parainfluen 3 PCR Nasal Parainfluen 4 PCR Nasal RSV (PCR) Nasal B.pertussis DNA PCR Nasal C.pneumoniae (PCR) [facility] Metapneumo PCR Nasal M.pneumoniae (PCR) Nasal SARS-CoV-2 (PCR) Salicylates < 6.0 mg/dL Urine Opiates Screen (NEGATIVE) Ur Oxycodone Screen (NEGATIVE) Urine Methadone Screen (NEGATIVE) Ur Propoxyphene Screen (NEGATIVE) Acetaminophen < 10 L (10-30) ug/mL Ur Barbiturates Screen (NEGATIVE) Ur Tricyclics Screen (NEGATIVE) Ur Phencyclidine Scrn (NEGATIVE) Ur Amphetamine Screen (NEGATIVE) U Methamphetamines Scrn (NEGATIVE) U Benzodiazepines Scrn (NEGATIVE) Urine Cocaine Screen (NEGATIVE) U Cannabinoids Screen (NEGATIVE) Ethyl Alcohol < 5.0 mg/dL ABX Reporting Has patient been on IV antibiotics over the past 48 hours?: Yes Assessment/Plan - Problem List (1) Metabolic encephalopathy Impression: It is not completely clear if this is resolved and it is mainly due to the patient's lack of verbal speech. At least verbal speech family wanted to speak. She will get angry and tell the nurses that we are kidnapping her, keeping her against her will. She will tell her nurse to get her hands off of her. But she will not speak in normal conversation, nor was she answer my questions today. She has been hydrated, received IV antibiotics for a UTI. I suspect that she may be improved but difficult to say without speech. Plan: Continue to try and speak to patient on a daily basis. I have read her advanced directives where she indicates that she does not want to be kept alive if she is now dependent on people for activities of daily living. I have given a copy of the advance directives to social work and to discharge planning. We will see if we can find a DPOA but the flexo press operator, Danielle, states there is no DPOA. I have also reviewed her old records through her primary care provider office. And there is a distinct philosophical bent to her discussions with them. She would not want to be in this hospital and she would want to be let go. (2) Acute cystitis Impression: Culture is in progress for urine. Results to follow. Currently on IV ceftriaxone and that will be continued. Qualifiers: Hematuria presence: without hematuria Qualified Code(s): N30.00 - Acute cystitis without hematuria (3) Prerenal azotemia Impression: Appeared mild with a BUN of 25. She has now been hydrated. Oral mucosa appears improved. However she refuses to let us do a blood draw. Going by physical exam that most likely has resolved. (4) Hypokalemia Impression: Unclear if this is resolved. She will not let us recheck her potassium. (5) Protein-calorie malnutrition, moderate Impression: In the primary care provider office there is only 1 weight recorded. There is no weights from 2019, and 1 weight in June 2020 of 176.6 pounds. Today her weight is recorded as 138.6 pounds. Yesterday she was recorded as 124.7 pounds. She has severe muscle wasting on physical exam. Mild bilateral temporal wasting. Will work with nutrition services for this unfortunate female but if she refuses to eat I do not know how much success we will have (6) History of ETOH abuse Impression: There is no alcohol in her system on tox screen yesterday. All other toxicology is negative as well. At this time I do not think she is at risk for withdrawal. We will give her a banana bag IV just in case. She is refusing p.o. (7) Failure to thrive in adult Impression: Same discussion as in problem #1 for metabolic encephalopathy (8) Chronic alcoholic liver disease Impression: Unable to stage at this time. She has mild protuberance of her abdomen. But I am not feeling fluid wave. There is no hepatomegaly. She refuses an ultrasound. She refused ultrasound previously. Has not had a drink in quite some time from the reports in the history. Ammonia level was acceptable.
[2021-11-08] MEDS ORDERED: ZINC OXIDE 20% OINT 30 GM TUBE TOP PRN (18:49)
[2021-11-08] MEDS: cefTRIAXone 1 GM in SODIUM CHLORIDE 0.9% MINIBAG 100 ML IV SCH (20:46)
[2021-11-08] MEDS ORDERED: CIPROFLOXACIN 250 MG TABLET PO SCH (21:00)
[2021-11-08] MEDS ORDERED: cefTRIAXone 1 GM in SODIUM CHLORIDE 0.9% MINIBAG 100 ML IV SCH (23:45)
[2021-11-09] MEDS: SODIUM CHLORIDE FLUSH 0.9% 10 ML SYRINGE IVP SCH ×4 (00:30→23:10)
[2021-11-09] MEDS: cefTRIAXone 1 GM in SODIUM CHLORIDE 0.9% MINIBAG 100 ML IV SCH (08:13)
[2021-11-09] MEDS: HEPARIN 5,000 UNIT/ML VIAL SUBQ SCH ×2 (08:13→21:04)
[2021-11-09] MEDS: MULTIVITAMIN 10 ML, THIAMINE INJ 100 MG, POTASSIUM CHLORIDE INJ 20 MEQ, FOLIC ACID INJ ... IV SCH ×5 (08:59)
--- NOTE | 2021-11-09 15:05 | PROVIDER PROGRESS NOTE ---
Subjective - Prog Note Date Prog Note Date: 11/09/21 Prog Note Time: 15:02 - Subjective Subjective: She continues to lay on her back, hands folded across her abdomen, eyes closed. Refusing to speak. However she does occasionally respond such as to the nurses or to social work. Overnight there were no incidences. No change in vital signs. She continues to refuse blood draws on a daily basis. Current Medications - Current Medications Current Medications: Active Medications Acetaminophen (Acetaminophen 325 Mg Tablet) 650 mg PO Q4HR PRN PRN Reason: Pain 1 to 4, or Fever Folic Acid (Folic Acid 1 Mg Tablet) 1 mg PO DAILY [facility] Heparin Sodium (Porcine) (Heparin 5,000 Unit/Ml Vial) 5,000 unit SUBQ BID [facility] Last Admin: 11/09/21 08:13 Dose: 5,000 unit Multivitamins 10 ml/ Thiamine HCl 100 mg/ Potassium Chloride 20 meq/ Folic Acid 1 mg/Dextrose/Sodium Chloride 1,021.2 mls @ 100 mls/hr IV DAILY [facility] Last Admin: 11/09/21 08:59 Dose: 100 mls/hr Ceftriaxone Sodium 1 gm/ (Sodium Chloride) 100 mls @ 200 mls/hr IV DAILY [facility] Last Infusion: 11/09/21 08:48 Dose: Infused Multi-Ingredient Ointment (Zinc Oxide 20% Oint 30 Gm Tube) 1 applic TOP PRN PRN PRN Reason: Skin Care Multivitamins (Multivitamin Tablet) 1 tab PO DAILY [facility] Ondansetron HCl (Ondansetron 4 Mg/2 Ml Vial) 4 mg IVP Q6HR PRN PRN Reason: Nausea / Vomiting Sodium Chloride (Sodium Chloride Flush 0.9% 10 Ml Syringe) 10 ml IVP PRN PRN PRN Reason: NEEDED PER PROVIDER ORDERS Sodium Chloride (Sodium Chloride Flush 0.9% 10 Ml Syringe) 10 ml IVP 0100,0900,1700 [facility] Last Admin: 11/09/21 09:03 Dose: Not Given Thiamine HCl (Thiamine 100 Mg Tablet) 100 mg PO DAILY [facility] Objective - Vital Signs/Intake & Output Reviewed Vital Signs: Yes Vital Signs: Vital Signs x48h Temp Pulse Resp BP Pulse Ox 11/09/21 11:39 36.0 C L 61 22 98/56 L 99 11/09/21 08:19 36.5 C 63 16 92/64 100 Intake & Output: Intake & Output 11/06/21 11/07/21 11/08/21 11/09/21 23:59 23:59 23:59 23:59 Intake Total 1100 3151.86 100 Output Total 1100 750 Balance 1100 2050.86 -650 - Objective General Appearance: positive: No acute distress, Other (Laying on her back, eyes closed, no respiratory distress, White female who looks much older than stated age, cachectic, disheveled) Eyes Bilateral: positive: PERRL, EOMI (When you open her eyes against her will) ENT: positive: No signs of dehydration Neck: positive: No JVD. negative: Stiff neck Respiratory: positive: No respiratory distress. negative: Wheezes, Rales, Rhonchi Cardiovascular: positive: Regular rate & rhythm. negative: Gallop/S4, Friction rub Abdomen: positive: Non-tender, No organomegaly, Nml bowel sounds, No distention Skin: positive: Warm, Dry. negative: Pallor Extremities: positive: Full ROM. negative: No pedal edema Neurologic/Psychiatric: positive: Motor nml (She does use her arms and hands purposefully when she wants to withdraw from nursing or from blood draws.) - Lab Results Fish Bones: 11/07/21 18:10 11/07/21 18:10 ABX Reporting Has patient been on IV antibiotics over the past 48 hours?: Yes Assessment/Plan - Problem List (1) Metabolic encephalopathy Impression: It is not completely clear if this is resolved and it is difficult to evaluate since she still refuses to speak unless she is angry. I hear the nurses tell me that she will tell them to keep their hands off her. But I have not witnessed it myself. She will get angry and tell the nurses that we are kidnapping her, keeping her against her will. But she will not speak in normal conversation with me and keeps her eyes closed, nor was she answer my questions today. She has been hydrated, received IV antibiotics for a UTI. I suspect that she may be improved but difficult to say without speech. Social work did see the patient. The patient was not verbal but did nod her head yes or no. She is scared. Does not want to go home nor does she want to be placed. She would rather just stay here. Social work is working through the ramifications of that. Plan: Continue to try and speak to patient on a daily basis. I have read her advanced directives where she indicates that she does not want to be kept alive if she is now dependent on people for activities of daily living. I have given a copy of the advance directives to social work and to discharge planning. We will see if we can find a DPOA but the computer architect, Danielle, states there is no DPOA. I have also reviewed her old records through her primary care provider office. And there is a distinct philosophical bent to her discussions with them. She would not want to be in this hospital and she would want to be let go. Today would be avoidable day 1. She is ready for discharge but has no d isposition (2) Acute cystitis Impression: Urine growth was without any growth. As such I will stop ceftriaxone. Qualifiers: Hematuria presence: without hematuria Qualified Code(s): N30.00 - Acute cystitis without hematuria (3) Prerenal azotemia Impression: Appeared mild with a BUN of 25. She has now been hydrated. Oral mucosa appears improved. However she continues to refuse to let us do a blood draws or xrays. Going by physical exam that most likely has resolved. (4) Hypokalemia Impression: Unclear if this is resolved. She will not let us recheck her potassium. (5) Protein-calorie malnutrition, moderate Impression: In the primary care provider office there is only 1 weight recorded. There is no weights from 2019, and 1 weight in June 2020 of 176.6 pounds. Today her weight is recorded as 138.6 pounds. Yesterday she was recorded as 124.7 pounds. She has severe muscle wasting on physical exam. Mild bilateral temporal wasting. Will work with nutrition services for this unfortunate female but if she refuses to eat I do not know how much success we will have (6) History of ETOH abuse Impression: There is no alcohol in her system on tox screen on admit. All other toxicology is negative as well. At this time I do not think she is at risk for withdrawal. We will gave her a banana bag IV just in case. She is refusing p.o. thiamine, folate. (7) Failure to thrive in adult Impression: Same discussion as in problem #1 for metabolic encephalopathy (8) Chronic alcoholic liver disease Impression: Unable to stage at this time. She has mild protuberance of her abdomen. But I do not feel a fluid wave. There is no hepatomegaly. She refuses an ultrasound. She refused ultrasound previously. Has not had a drink in quite some time from the reports in the history. Ammonia level was acceptable. (2) Acute cystitis Qualifiers: Qualified Code(s): N30.00 - Acute cystitis without hematuria
[2021-11-10] MEDS: HEPARIN 5,000 UNIT/ML VIAL SUBQ SCH ×2 (08:31→20:30)
[2021-11-10] MEDS: SODIUM CHLORIDE FLUSH 0.9% 10 ML SYRINGE IVP SCH ×2 (08:31→17:03)
[2021-11-10] MEDS: FOLIC ACID 1 MG TABLET PO SCH (08:32)
[2021-11-10] MEDS: THIAMINE 100 MG TABLET PO SCH (08:33)
[2021-11-10] MEDS: MULTIVITAMIN TABLET PO SCH (08:33)
[2021-11-10] MEDS: MULTIVITAMIN 10 ML, THIAMINE INJ 100 MG, POTASSIUM CHLORIDE INJ 20 MEQ, FOLIC ACID INJ ... IV SCH ×5 (10:14)
--- NOTE | 2021-11-10 11:38 | PROVIDER PROGRESS NOTE ---
Subjective - Prog Note Date Prog Note Date: 11/10/21 Prog Note Time: 11:36 - Subjective Subjective: Still closing her eyes and refusing to speak to me. However she does still talk to the nurse when then she is angry at what the nurses done. She did nod yes or no to case management and utilization review today when I asked her about questions for disposition. She is designating Danielle, her ambulance officer and caregiver, DURABLE POWER OF TECHNICAL PLANNER. She is also stating that Danielle can make decisions for financial decision-making. Current Medications - Current Medications Current Medications: Active Medications Acetaminophen (Acetaminophen 325 Mg Tablet) 650 mg PO Q4HR PRN PRN Reason: Pain 1 to 4, or Fever Folic Acid (Folic Acid 1 Mg Tablet) 1 mg PO DAILY [facility] Last Admin: 11/10/21 08:32 Dose: Not Given Heparin Sodium (Porcine) (Heparin 5,000 Unit/Ml Vial) 5,000 unit SUBQ BID [facility] Last Admin: 11/10/21 08:31 Dose: 5,000 unit Multivitamins 10 ml/ Thiamine HCl 100 mg/ Potassium Chloride 20 meq/ Folic Acid 1 mg/Dextrose/Sodium Chloride 1,021.2 mls @ 100 mls/hr IV DAILY [facility] Last Admin: 11/10/21 10:14 Dose: 100 mls/hr Multi-Ingredient Ointment (Zinc Oxide 20% Oint 30 Gm Tube) 1 applic TOP PRN PRN PRN Reason: Skin Care Multivitamins (Multivitamin Tablet) 1 tab PO DAILY [facility] Last Admin: 11/10/21 08:33 Dose: Not Given Ondansetron HCl (Ondansetron 4 Mg/2 Ml Vial) 4 mg IVP Q6HR PRN PRN Reason: Nausea / Vomiting Sodium Chloride (Sodium Chloride Flush 0.9% 10 Ml Syringe) 10 ml IVP PRN PRN PRN Reason: NEEDED PER PROVIDER ORDERS Sodium Chloride (Sodium Chloride Flush 0.9% 10 Ml Syringe) 10 ml IVP 0100,0900,1700 [facility] Last Admin: 11/10/21 08:31 Dose: 10 ml Thiamine HCl (Thiamine 100 Mg Tablet) 100 mg PO DAILY [facility] Last Admin: 11/10/21 08:33 Dose: Not Given Objective - Vital Signs/Intake & Output Reviewed Vital Signs: Yes Vital Signs: Vital Signs x48h Temp Pulse Resp BP Pulse Ox 11/10/21 07:32 16 11/10/21 05:37 36.4 C L 78 16 101/68 98 Intake & Output: Intake & Output 11/07/21 11/08/21 11/09/21 11/10/21 23:59 23:59 23:59 23:59 Intake Total 1100 3151.86 1121.2 Output Total 1100 1350 425 Balance 1100 2051.86 -228.8 -425 - Objective General Appearance: positive: Other (Eyes closed, mute. As always laying on her back, hands crossed across her lower chest upper abdomen.) Eyes Bilateral: positive: PERRL (When I force open her eyelids. She does not like that and withdraws her head away.) ENT: positive: No signs of dehydration Neck: positive: No JVD. negative: Stiff neck Respiratory: positive: No respiratory distress. negative: Wheezes, Rales, Rhonchi Cardiovascular: positive: Regular rate & rhythm. negative: Gallop/S4, Friction rub Abdomen: positive: Non-tender, No organomegaly, Nml bowel sounds, No distention Skin: positive: Warm, Dry Extremities: positive: No pedal edema - Lab Results Fish Bones: 11/07/21 18:10 11/07/21 18:10 Assessment/Plan - Problem List (1) Metabolic encephalopathy Impression: It is not completely clear if this is resolved and it is difficult to evaluate since she still refuses to speak unless she is angry. I hear the nurses tell me that she will tell them to keep their hands off her. But I have not witnessed it myself. She will get angry and tell the nurses that we are kidnapping her, keeping her against her will. But she will not speak in normal conversation with me and keeps her eyes closed, nor was she answer my questions 11/09 or today. She has been hydrated, received IV antibiotics for a UTI. I suspect that she may be improved but difficult to say without speech. Social work did see the patient again 11/09. The patient was not verbal but did nod her head yes or no. She is scared. Does not want to go home nor does she want to be placed. She would rather just stay here. Social work is working through the ramifications of that. Today UR and [place] nurse were able to get her to acknowledge danielle thru head nods and she agrees for Danielle to be DPOA. Plan: Transition to plans for home or residential facility. both with [facility]. I have also reviewed her old records through her primary care provider office. And there is a distinct philosophical bent to her discussions with them. She would not want to be in this hospital and she would want to be let go. Today would be avoidable day 2. She is ready for discharge but has no disposition (2) Acute cystitis Impression: Urine growth was without any growth. As such I stopped ceftriaxone. Qualifiers: Hematuria presence: without hematuria Qualified Code(s): N30.00 - Acute cystitis without hematuria (3) Prerenal azotemia Impression: Appeared mild with a BUN of 25. She has now been hydrated. Oral mucosa appears improved. However she continues to refuse to let us do a blood draws or xrays. Going by physical exam that most likely has resolved. (4) Hypokalemia Impression: Unclear if this is resolved. She will not let us recheck her potassium. (5) Protein-calorie malnutrition, moderate Impression: In the primary care provider office there is only 1 weight recorded. There is no weights from 2019, and 1 weight in June 2020 of 176.6 pounds. Today her weight is recorded as 138.6 pounds. Yesterday she was recorded as 124.7 pounds. She has severe muscle wasting on physical exam. Mild bilateral temporal wasting. Will work with nutrition services for this unfortunate female but if she refuses to eat I do not know how much success we will have (6) History of ETOH abuse Impression: There is no alcohol in her system on tox screen on admit. All other toxicology is negative as well. At this time I do not think she is at risk for withdrawal. We have given her a banana bags IV just in case. She is refusing p.o. thiamine, folate. (7) Failure to thrive in adult Impression: Same discussion as in problem #1 for metabolic encephalopathy (8) Chronic alcoholic liver disease Impression: Unable to stage at this time. She has mild protuberance of her abdomen. But I do not feel a fluid wave. There is no hepatomegaly. She refuses an ultrasound. She refused ultrasound previously. Has not had a drink in quite some time from the reports in the history. Ammonia level was acceptable. (2) Acute cystitis Qualifiers: Qualified Code(s): N30.00 - Acute cystitis without hematuria
--- NOTE | 2021-11-10 15:19 | PHARMACY PROGRESS NOTE ---
- Best Possible Medication History Admit Date and Time: 11/07/21 5709 Processed by: Pharmacy Patient Interview: Pt unable to participate As the person ultimately responsible for medication therapy, providers are able to order a medication from an existing home medication list in [facility] via the "Reconcile Routine" prior to Confirmation of that medication by practice support specialist. Such practice is discouraged except when the physician, in their clinical judgment, deems that a medical need exists for a medication without regard to previous use.
[2021-11-11] MEDS: SODIUM CHLORIDE FLUSH 0.9% 10 ML SYRINGE IVP SCH ×2 (03:23→10:19)
[2021-11-11] MEDS: MULTIVITAMIN TABLET PO SCH (10:18)
[2021-11-11] MEDS: HEPARIN 5,000 UNIT/ML VIAL SUBQ SCH (10:18)
[2021-11-11] MEDS: FOLIC ACID 1 MG TABLET PO SCH (10:18)
[2021-11-11] MEDS: MULTIVITAMIN 10 ML, THIAMINE INJ 100 MG, POTASSIUM CHLORIDE INJ 20 MEQ, FOLIC ACID INJ ... IV SCH ×5 (10:18)
[2021-11-11] MEDS: THIAMINE 100 MG TABLET PO SCH (10:19)
--- NOTE | 2021-11-11 11:21 | PROVIDER PROGRESS NOTE ---
Subjective - Prog Note Date Prog Note Date: 11/11/21 Prog Note Time: 11:18 - Subjective Subjective: she is now speaking to social work and nursing. She doesn't want lab draws or vitals or IV meds or IVs. She does want to go home tomorrow and Danielle will be moving in. but will also be hiring caregivers. they do not want Hospice referral yet and would like Palliative Care instead. Still very tight lipped and irritated with all questions but is actually speaking to us to give us enough info to go on. Reiterates doesn't want hospitalizations or surgeries or xrays. Wants to go home. Doesn't acknowledge how close she has come to dying from self neglect and doesn't acknowledge self neglect at all. Current Medications - Current Medications Current Medications: Active Medications Acetaminophen (Acetaminophen 325 Mg Tablet) 650 mg PO Q4HR PRN PRN Reason: Pain 1 to 4, or Fever Folic Acid (Folic Acid 1 Mg Tablet) 1 mg PO DAILY [facility] Last Admin: 11/11/21 10:18 Dose: Not Given Heparin Sodium (Porcine) (Heparin 5,000 Unit/Ml Vial) 5,000 unit SUBQ BID [facility] Last Admin: 11/11/21 10:18 Dose: Not Given Multivitamins 10 ml/ Thiamine HCl 100 mg/ Potassium Chloride 20 meq/ Folic Acid 1 mg/Dextrose/Sodium Chloride 1,021.2 mls @ 100 mls/hr IV DAILY [facility] Last Admin: 11/11/21 10:18 Dose: Not Given Multi-Ingredient Ointment (Zinc Oxide 20% Oint 30 Gm Tube) 1 applic TOP PRN PRN PRN Reason: Skin Care Multivitamins (Multivitamin Tablet) 1 tab PO DAILY [facility] Last Admin: 11/11/21 10:18 Dose: Not Given Ondansetron HCl (Ondansetron 4 Mg/2 Ml Vial) 4 mg IVP Q6HR PRN PRN Reason: Nausea / Vomiting Sodium Chloride (Sodium Chloride Flush 0.9% 10 Ml Syringe) 10 ml IVP PRN PRN PRN Reason: NEEDED PER PROVIDER ORDERS Sodium Chloride (Sodium Chloride Flush 0.9% 10 Ml Syringe) 10 ml IVP 0100,0900,1700 [facility] Last Admin: 11/11/21 10:19 Dose: Not Given Thiamine HCl (Thiamine 100 Mg Tablet) 100 mg PO DAILY [facility] Last Admin: 11/11/21 10:19 Dose: Not Given She is refusing above meds and IVs, No Known Home Medications 11/10/21 Objective - Vital Signs/Intake & Output Reviewed Vital Signs: Yes Intake & Output: Intake & Output 11/08/21 11/09/21 11/10/21 11/11/21 23:59 23:59 23:59 23:59 Intake Total 3151.86 1121.2 1021.2 Output Total 1100 1350 1100 375 Balance 2051.86 -228.8 -78.8 -375 - Objective General Appearance: positive: Alert, Other Eyes Bilateral: positive: PERRL, EOMI ENT: positive: Dry mucous membranes Neck: positive: No JVD. negative: Stiff neck Respiratory: positive: No respiratory distress. negative: Wheezes, Rales, Rhonchi Cardiovascular: positive: Regular rate & rhythm. negative: Gallop/S4, Friction rub Abdomen: positive: No organomegaly, Nml bowel sounds, No distention (no fluid wave) Extremities: positive: Full ROM, No pedal edema Neurologic/Psychiatric: positive: Oriented x3, CN's nml (2-12). negative: Motor nml (Profound weakness. But she is asking us to sit her up in the side of the bed and would like to stand to go to the bathroom.) - Lab Results Fish Bones: 11/07/21 18:10 11/07/21 18:10 Assessment/Plan - Problem List (1) Metabolic encephalopathy Impression: by speaking today and being lucid, she is able to demonstrate this problems did resolved. It was difficult to evaluate since she was refusing to speak unless s he is angry. I hear the nurses tell me that she will tell them to keep their hands off her. But I have not witnessed it myself. She will get angry and tell the nurses that we are kidnapping her, keeping her against her will. But she will not speak in normal conversation with me and keeps her eyes closed, nor was she answer my questions 11/09 or today. She has been hydrated, received IV antibiotics for a UTI. I suspect that she may be improved but difficult to say without speech. Social work did see the patient again 11/09. The patient was not verbal but did nod her head yes or no. She is scared. Does not want to go home nor does she want to be placed. She would rather just stay here. Social work is working through the ramifications of that. 11/10 and [place] nurse were able to get her to acknowledge that Danielle could speak for her thru head nods and she agrees for Danielle to be DPOA. Today she is appropriately conversant and expressing her desires. She would like to go home tomorrow. She agrees to in-home care support through Danielle and private duty hires. She is not ready for hospice care but would like a palliative care consult. Plan: Today is avoidable day 3. We will follow through with these plans with social work.I would also recommend adult protective service referral (2) Acute cystitis Impression: Urine growth was without any growth. As such I stopped ceftriaxone. Qualifiers: Hematuria presence: without hematuria Qualified Code(s): N30.00 - Acute cystitis without hematuria (3) Prerenal azotemia Impression: Appeared mild with a BUN of 25. She has now been hydrated. Oral mucosa appears improved. However, even today, she continues to refuse to let us do a blood draws or xrays. Going by physical exam that most likely has resolved. (4) Hypokalemia Impression: Unclear if this is resolved. She will not let us recheck her potassium. (5) Protein-calorie malnutrition, moderate Impression: In the primary care provider office there is only 1 weight recorded. There is no weights from 2019, and 1 weight in June 2020 of 176.6 pounds. Today her weight is recorded as 138.6 pounds. Yesterday she was recorded as 124.7 pounds. She has severe muscle wasting on physical exam. Mild bilateral temporal wasting. Will work with nutrition services for this unfortunate female but She has refused to eat the entire time she has been here. She is refused to let us resume the IV when it fell out. She did get intermittent IV fluids. She was ab le to get 1 or 2 banana bags but refuses today's banana bag.I will reorder PT and OT but I do not know if she will comply.I would think that she would get home health PT and OT as well to follow her in the home setting (6) History of ETOH abuse Impression: There is no alcohol in her system on tox screen on admit. All other toxicology is negative as well. At this time I do not think she is at risk for withdrawal. We have given her a banana bags IV just in case. She is refusing p.o. thiamine, folate. (7) Failure to thrive in adult Impression: Same discussion as in problem #1 for metabolic encephalopathy (8) Chronic alcoholic liver disease Impression: Unable to stage at this time. She has mild protuberance of her abdomen. But I do not feel a fluid wave. There is no hepatomegaly. She refuses an ultrasound. She refused ultrasound previously. Has not had a drink in quite some time from the reports in the history. Ammonia level was acceptable.
[2021-11-11 16:35] VITALS: BP 109/89
--- NOTE | 2021-11-11 17:14 | Discharge Plan ---
Discharge Plan Problem Reviewed?: Yes Disposition: 06 Home Health Service Condition: Fair Diet: Regular Activity Restrictions: Activity as Tolerated Shower Restrictions: No Driving Restrictions: Yes (no driving due to weakness) Assistance Devices: [facility] Concerns: You were brought to our emergency room by ambulance after ambulance was called to your house several times in the last 2 weeks. For the last month you have been laying on your couch, not moving. Danielle was putting towels underneath you so that you would not defecate or urinate on the sofa. But you refused to get up. For the last day and a half before you came in you had not had any urinary output. You have not eaten for a day and a half. You have a history of severe alcoholism but you have not drank for a month. You are severely malnourished. You were dehydrated, skin and bones, with a low potassium, and a urinary tract infection. When brought to the hospital you initially let us give you intravenous fluid, medications, but then you started refusing and you do not want to eat or drink any fluids. You refused to speak to us. It took you a few days to finally open up to us to tell us what you wanted. Plan of Treatment: 1. Your request is to have complete control over your healthcare matters. 2. You have requested that Danielle be your DURABLE POWER OF PUMP MACHINE OPERATOR to help you get that. 3. You would like to return to home and not come back to the hospital. 4. Your advance directive states that if you were to become bedbound and be completely reliant on people to take care of you you want to be a DO NOT RESUSCITATE. We are honoring that. 5. Please have discussions with Danielle about the practicality of staying at home and never coming back to the hospital. At this time we are sending you home with home health nurse, home health bath aide, home health physical therapy and home health social work. All of these people should be able to accomplish your goals that you will set forth. But helps them fill out all the paperwork so that you can have control of your health and treatment. Care Goals: Patient would like to stay at home and never come back to the hospital. If she gets weak enough that it is time for her to pass away she wants to do it at home Assessment: Danielle has stepped up to the plate and is now assuming responsibility to help Ms. Mills make healthcare decisions. Danielle is understandably anxious about this. She and Ms. Mills have a lot to talk about and a lot of planning No Smoking: If you smoke, Please STOP! Call for help. Follow-up with: Pio Gonzalez MD [Physician No Access] -
--- NOTE | 2021-11-11 17:21 | DISCHARGE SUMMARY ---
Discharge Summary Admit Date: 11/07/21 Discharge Date: 11/11/21 Discharging Provider: Ling Bergman MD Primary Care Provider: [facility], [place] [facility] Code Status: Do Not Attempt Resuscitation Condition at Discharge: Fair Discharge Disposition: Home Health Service - DIAGNOSES Discharge Diagnoses with Status of Each Condition: 1. Metabolic encephalopathy resolved 2. Severe protein calorie malnutrition 3. Alcoholic liver disease, chronic 4. Acute cystitis 5. Dehydration and prerenal azotemia 6. Hypokalemia 7. Failure to thrive as an adult - HPI History of Present Illness: Ms Mills is a 71 yo F with hx alcoholism, patient reports she quit drinking one month ago. Patient has been on her couch x 1 week, unable to get up, minimal PO intake. Her power engineer has been using towels under the patient for urine/feces. Patient declined EMS transport and was placed on [facility] by [facility]. At time of my evaluation patient is oriented to self and place only ([facility], [facility], no further details). She states she was taken against her will because she hasn't been eating. She states she has no appetite, not hungry, tried to eat a banana and felt nauseous. Patient denies any pain or discomfort at this time. Denies abd pain, vomiting, diarrhea, fevers, chills, cough, sputum production, cp, sob. She is agreeable to hospital admission. Limited interaction, mostly gives one word answers. Appears fatigued. Per ER physician discussion with caregiver: "The patient's friend and caregiver Danielle Kinney indicates to me that the patient has a longstanding history of alcohol abuse though she has not drank for nearly a week and she does have periods of sobriety. She reports that the patient has no family members that can speak for her. Her long-term partner about a year ago. However she does report that the patient is typically alert, oriented and very conversant. She had always been able to get out of bed and ambulate without any assistance Up until a week ago. She also reports that patient takes no routinely prescribed medications at baseline. " - Past Medical History Cardiovascular: denies: None Respiratory: denies: None Neuro: denies: None Endocrine/Autoimmune: denies: None GI: denies: None BUS AND RAIL OPERATOR: denies: None : denies: None HEENT: denies: None Psych: denies: None Musculoskeletal: denies: None Derm: denies: None Other Past Medical History: etoh abuse - Past Surgical History Other past surgical history: none - CONSULTS | PROCEDURES Procedures: 1. Head CT. Age-related volume loss and mild small vessel ischemic changes. Sinusitis. No evidence of acute stroke, hemorrhage, or mass. 2. Chest x-ray with mild interstitial prominence in the upper lung zone suggestive of chronic interstitial lung changes from scarring or emphysema but no acute cardiopulmonary process. 3. Urine culture without any gross - HOSPITAL COURSE Hospital Course: The patient was placed in the hospital and given IV fluids with D5, potassium and empiric antibiotics for possible UTI. It was difficult to evaluate her encephalopathy because she had periods where she was angry, was quite sick synced in her use of curse words to the nurses, would then become mute and refused to speak to people. She would lay on her back with her eyes closed and would not respond unless somebody touched her. Within 2 days she was refusing food, refusing p.o. medications. When her IV infiltrated on the third day she did not want another IV. We stopped her antibiotics when acute cystitis did not grow out a bacteria. We were not able to reassess her prerenal azotemia, hypokalemia, or labs because she refused to have blood draws. She also refused to have ultrasound. On the day of discharge she was finally willing to speak to social work, myself. She delegated Danielle to be her DURABLE POWER OF FABRICATOR ARTIFICIAL BREAST. She was very consistent in wanting to go home and have control of her health and healthcare decision making. She did not ever want to be hospitalized again. Danielle was very uncomfortable with this because she feels that the patient should return for simple problems. However the patient has a very specific philosophy and I explained that she and Danielle need to sit down with the help of home health social work to make future plans. The plans would include allowing the store to stay at home and if she wants to. That being said, I am ordering home health PT, OT, nurse, bath aide, social work. At discharge the patient is alert, oriented. States that she knows what she wants. Temperature is 36.9. Heart rate of been in the 70s and 80s all day long and shot up to 122. Then came down to 84. She is mildly hypotensive at 109/89. At home she does not take any blood pressure drugs. I have asked her to please take a multivitamin, folate and thiamine. Lungs are clear. Although nursing reports tachycardia at 122, I am hearing a heart rate in the mid 80s by count. No murmur. The abdomen is soft, nontender. Extremities are without edema. Again I cannot emphasize that she is alert, oriented, intact sentence structure. Knows where she is, how she got here, and does not want to ever return. I have advised her to stop drinking completely. Greater than 30 minutes was spent coordinating discharge. - ALLERGIES Allergies/Adverse Reactions: Allergies Allergy/AdvReac Type Severity Reaction Status Date / Time No Known Drug Allergies Allergy Verified 11/07/21 18:03 - MEDICATIONS Home Medications: Ambulatory Orders Medication Instructions Recorded Confirmed Acetaminophen [Tylenol] 650 mg PO Q4HR PRN tab 11/11/21 Folic Acid 1 mg PO DAILY tab 11/11/21 Multivitamin [Theragran] 1 tab PO DAILY tab 11/11/21 Thiamine [Vitamin B-1] 100 mg PO DAILY tab 11/11/21 - LABS Result Diagrams: 11/07/21 18:10 11/07/21 18:10
== END 2021-11-11 18:50 | disposition home health service (06) | DRG 70 ==
LOC: EDUNIT# → ED 17:46 → MS2 23:30
PROVIDERS: ADMIT Student in an Organized Health Care Education/Training Program; ATTEND Specialist
DX: G93.41 Metabolic encephalopathy (principal); R64 Cachexia; E43 Unspecified severe protein-calorie malnutrition; E86.0 Dehydration; N30.00 Acute cystitis without hematuria; K70.9 Alcoholic liver disease, unspecified; Z20.822 Contact with and (suspected) exposure to COVID-19; E87.6 Hypokalemia; R79.89 Other specified abnormal findings of blood chemistry; R62.7 Adult failure to thrive; R32 Unspecified urinary incontinence; K08.109 Complete loss of teeth, unspecified cause, unspecified class; F17.210 Nicotine dependence, cigarettes, uncomplicated; Z68.23 Body mass index [BMI] 23.0-23.9, adult; Z87.898 Personal history of other specified conditions
CPT/HCPCS: 36415; 70450; 71045; 80053; 80306; 80307; 81001; 82140; 82550; 83690; 84443; 85025; 87086; 87633; 97163; A9270; G0480; J3411; 80048; 80320; 80329; 81003; 83735